=== PATIENT | female | born 1975 | race Caucasian/White ===

== ENCOUNTER 2019-10-09 01:21 | Day surgery (SDC) | payer BC, SELFPAY ==
[2019-09-30 12:49] VITALS: BMI 44.7
--- NOTE | 2019-10-09 09:54 | P.HP_ITS ---
History of Present Illness History of Present Illness Consent: Risks, benefits, and alternatives have been discussed and questions answered. Patient agrees to proceed with procedure. Chief complaint: Menorrhagia Narrative: Monica Starkey is a 44 year old female presents for mj ablation. s/p hysteroscopy [facility] Past Medical History Medical History (Updated 10/09/19 @ 09:58 by Nawaf Perez MD) Menorrhagia Meds Home Medications and Allergies Home Medications Medication Instructions Recorded Confirmed Type Do Terra Microplex Vmz 2 cap PO BID 09/30/19 History Doterra Alpha Crs + Vitality 2 cap PO BID 09/30/19 History Doterra Exo Benny Complex 2 cap PO BID 09/30/19 History methylphenidate HCl 30 mg PO DAILY 09/30/19 09/30/19 History sertraline 50 mg PO QNOON 09/30/19 09/30/19 History Allergies Allergy/AdvReac Type Severity Reaction Status Date / Time latex Allergy Rash Verified 09/30/19 12:53 Exam Const: General: no acute distress GI: GI Palp: Yes Soft to palpation : External Female Exam: normal external appearance Assessment and Plan Assessment and plan (1) Menorrhagia: Code(s): N92.0 - Excessive and frequent menstruation with regular cycle Status: Acute Assessment and Plan: scheduled for a hysteroscopy dilation and curettage. Risk and benefits reviewed with patient.
[2019-10-09 10:49] VITALS: BP 153/82; PULSE 66; RESP 16; TEMP 36.6; O2SAT 100
[2019-10-09] MEDS: LACTATED RINGERS 1,000 ML 30 ML IV CONT (11:30)
--- NOTE | 2019-10-09 12:24 | WPDANESEPPF ---
Anes - Initial Pre Proc Eval Procedure: Operation Date: 10/09/19 12:45 Proposed Procedures p Hysteroscopy, Endometrial Lida Ablation - Nawaf Perez MD Date/Time: 10/09/19 12:24 Surgeon: Nawaf Perez MD Pre Op Diagnosis: Menorrhagia Patient Data Age: 44 Gender: F Height: 5 ft 9 in Weight: 137.8 kg Allergies Allergy/AdvReac Type Severity Reaction Status Date / Time latex AdvReac SENSITIVE Verified 10/09/19 11:10 TO LATEX,SKIN GETS RED AND RAISED Home Medications Medication Instructions Recorded Confirmed Type Do Terra Microplex Vmz 2 cap PO BID 09/30/19 10/09/19 History Doterra Alpha Crs + Vitality 2 cap PO BID 09/30/19 10/09/19 History Doterra Exo Benny Complex 2 cap PO BID 09/30/19 10/09/19 History methylphenidate HCl 30 mg PO DAILY 09/30/19 10/09/19 History sertraline 50 mg PO QNOON 09/30/19 10/09/19 History lactobacillus combination no.4 3,000 mmu cells PO DAILY 10/09/19 10/09/19 History [Probiotic] Patient hx anesthesia problems: none Family hx anesthesia problems: none PMFSH Past Medical History Medical History (Updated 10/09/19 @ 12:24 by Elbert العلي MD) Menorrhagia Morbid obesity ERIK on CPAP Surgical History Surgical History (Updated 10/09/19 @ 12:24 by Elbert العلي MD) History of section Hx of tonsillectomy Anes - Eval Final PreProcedure Day of Procedure 10/09/19 12:24 Patient weight: morbidly obese Heart: regular rate and rhythm Lungs: clear to auscultation Airway: Mallampati scale class II Neurological: alert and oriented Last oral intake: >/= 8 hours ASA classification: III Emergent: no Anesthetic plan: proceed Anesthesia type and monitoring: general GIVS and standard monitoring Informed Consent: The patient's anesthetic plan and its attendant risks and benefits were discussed with the patient/family/POA. Questions were solicited and answers provided to the satisfaction of the patient/family/POA.
--- NOTE | 2019-10-09 13:10 | SUR.PREOP ---
1100-STATES NO CHANGE SINCE INTERVIEW. INFORMED SURGERY/ANESTHESIA DELAY SURGEON ~30 MINUTES.
[2019-10-09] MEDS: KETOROLAC 30 MG/ML VIAL (*BKC) IV PUSH (14:12)
[2019-10-09 14:16] VITALS: BP 152/79; PULSE 76; RESP 18; O2SAT 97
[2019-10-09 14:45] VITALS: BP 131/63; PULSE 70; RESP 18; O2SAT 97
[2019-10-09 15:15] VITALS: BP 157/73; PULSE 62; RESP 18
--- NOTE | 2019-10-10 18:07 | OP_ITS ---
DATE OF PROCEDURE: 10/09/2019 PREOPERATIVE DIAGNOSIS: Abnormal uterine bleeding. POSTOPERATIVE DIAGNOSIS: Abnormal uterine bleeding. PROCEDURE PERFORMED: Hysteroscopy with Lida ablation. ANESTHESIA: MAC with a paracervical block. COMPLICATIONS: None. ESTIMATED BLOOD LOSS: 50 cc. PROCEDURE IN DETAIL: The patient was taken to the operating room with IV running, prepared and draped in a normal sterile fashion and placed in the dorsal lithotomy position. Bivalved speculum was placed into the vagina. Anterior lip of the cervix was grasped with a single-tooth tenaculum. The cervix was then serially dilated with Hegar dilators and hysteroscope was introduced into uterine cavity. The hysteroscope was removed. The Lida device was then introduced into the cavity, passed. uterine length of 6 cm. Lida device was activated and ablated for 2 minutes. With Lida device removed, hysteroscope showed good ablation. Prior to ablating the uterus, sharp curettage was performed in all 4 quadrants to a gritty texture. Specimen was sent to pathology. Sponge, needle counts were correct x2. Hemostasis was assured at the tenaculum site. Angela I MT: Diane DAVIES
== END 2019-10-09 15:32 | disposition home or self-care (01) ==
PROVIDERS: PCP Family Medicine; Visit Provider Obstetrics & Gynecology
PROC: 0U5B8ZZ Destruction of Endometrium, Via Natural or Artificial Opening Endoscopic (ICD-10-PCS; CPT 58563; principal; 2019-10-09 12:45)
DX: N92.0 Excessive and frequent menstruation with regular cycle (principal); G47.33 Obstructive sleep apnea (adult) (pediatric); Z99.89 Dependence on other enabling machines and devices; E66.01 Morbid (severe) obesity due to excess calories; Z68.41 Body mass index [BMI] 40.0-44.9, adult
CPT/HCPCS: 58563; 88305; A9270; J1885; J2250; J2704; J3010; J7030; J7120

== ENCOUNTER 2022-02-12 00:14 | Day surgery (SDC) | payer BC, SELFPAY ==
[2022-02-05 12:46] VITALS: BMI 45.8
--- NOTE | 2022-02-05 12:56 | PC.NURSE ---
Report to the Outpatient Waiting Room, entrance under the green pavilion located off [facility], at time 0915 on date 02/12/22. OR Time: 1115. - You and your visitor will be asked a series of questions to screen for COVID 19 for your protection. - Only one visitor is allowed at this time. - The patient visitor is requested to leave or wait in car when not with patient. - A mask is required within the hospital. Patients may have clear liquids (water, carbonated beverages, clear teas, apple juice) until 3 hours prior to surgery with a maximum of 20 ounces. - No food from midnight until time of surgery Take the following medications with a SIP of water the morning of surgery: NONE (TAKES SERTRALINE AT NOON USUALLY) Medications to discontinue per physician: VITAMINS/SUPPLEMENTS Date to take last dose: 02/08/22 Please no make-up, nail cypriot, hairspray, perfume, deodorant, or body powder the day of surgery. No jewelry (including any body piercings) or valuables the day of surgery, leave them at home. Please take a shower or bath the night before, or the morning of, surgery with an antibacterial soap. Wear comfortable, loose fitting clothing. - Jewelry must be removed prior to entering the operating room. Rings and piercings that are not removed may be cut off. - The hospital will not accept responsibility for valuables. - Please leave all valuables, including medications, at home the day of surgery. If you are going home after surgery, a licensed patrol driver must drive you home. - NO public transportation without another adult. - We recommend that an adult stay with you for 24 hours following discharge. - We also recommend that you do not drive, make important decision, drink alcoholic beverages, or take any drugs that were not prescribed by your health care provider for at least 24 hours after your discharge time. Follow any additional instructions given to you from your surgeon. If you or anyone in your household have experienced Covid symptoms in the past week, please notify your surgeon or the nurse liaison at the phone number below for possible testing. Telephone instructions given to PT - SEBASTIEN REYES and asked if any additional questions and then verbalized understanding. Patient advised to call surgeon office or pre surgery nurse liaison [phone] if any additional questions.
--- NOTE | 2022-02-12 06:52 | WPDHPUPDATE1 ---
History and Physical Update Update Date/Time: 02/12/22 06:52 History and Physical has been reviewed, including an updated exam of the patient. There are NO changes in the patient's condition. Risks, benefits, and alternatives have been discussed and questions answered. Patient agrees to proceed with procedure.
--- NOTE | 2022-02-12 06:52 | PM.HPGS ---
History of Present Illness History of Present Illness Consent: Risks, benefits, and alternatives have been discussed and questions answered. Patient agrees to proceed with procedure. Chief complaint: menorrhagia Narrative: Monica Starkey is a 47 year old female with menorrhagia. Patient has 6 months of increasing cycles now lasting 6-8 days passing clots with heavy flow. Patient is status post endometrial ablation in 2019. It was recommended to proceed with hysteroscopy D&C to further evaluate. Patient was given Cytotec for the week prior to procedure to help with entering the cavity. Risks of infection, bleeding, perforation, and inability to enter the cavity were reviewed. Possible pathology was also discussed. Patient voices understanding and agrees to proceed. Review of Systems Review of Systems: not repeated day of surgery; patient states no changes in status PMFSH Past Medical History Medical History (Updated 02/12/22 @ 06:55 by Leslie Rojas MD) ADHD (attention deficit hyperactivity disorder) Anxiety HTN (hypertension) Menorrhagia Morbid obesity ERIK on CPAP Status post hysteroscopy Surgical History Surgical History (Updated 02/12/22 @ 06:55 by Leslie Rojas MD) History of section X2 Hx of tonsillectomy Status post hysteroscopic ablation of endometrium Status post tubal ligation Social History Social History Smoking status: Never smoker Alcohol intake: never Substance use: never Substance use type: does not use Living arrangements: with family Spiritual care concerns: No Meds Home Medications and Allergies Home Medications Medication Instructions Recorded Confirmed Type Do Terra Microplex Vmz 2 cap PO BID 09/30/19 02/05/22 History Doterra Alpha Crs + Vitality 2 cap PO BID 09/30/19 02/05/22 History Doterra Exo Benny Complex 2 cap PO BID 09/30/19 02/05/22 History methylphenidate HCl 30 mg biphasic 30 mg PO DAILY ADHD 09/30/19 02/05/22 History 30-70 capsule,extended release sertraline 50 mg tablet 50 mg PO QNOON 09/30/19 02/05/22 History lactobacillus combination no.4 3 3,000 mmu cells PO DAILY 10/09/19 02/05/22 History billion cell capsule (Probiotic) cetirizine 10 mg tablet 10 mg PO DAILY 02/05/22 02/05/22 History losartan 100 mg tablet 1 tablet PO DAILY 02/05/22 02/05/22 History misoprostol 200 mcg tablet 200 tablet PO HS 02/05/22 02/05/22 History Allergies Allergy/AdvReac Type Severity Reaction Status Date / Time latex AdvReac SENSITIVE Verified 02/05/22 12:44 TO LATEX,SKIN GETS RED AND RAISED Exam Const: General: healthy appearing and alert Orientation/consciousness: patient oriented x3 GI: GI Palp: Yes Soft to palpation, No Tenderness to palpation present (GI) and No Palpable mass present : External Female Exam: normal external appearance Speculum Exam - Vagina: normal appearance of the vagina and normal vaginal discharge Speculum Exam - Cervix: normal appearance of the cervix Bimanual exam- vagina & uterus: uterine size normal and consistency normal Bimanual Exam- Adnexa, other: normal adnexae and No adnexal tenderness Neuro: General: patient oriented x3 Assessment and Plan Assessment and plan (1) Menorrhagia: Code(s): N92.0 - Excessive and frequent menstruation with regular cycle Status: Acute Assessment and Plan: Plan to proceed with D&C hysteroscopy
[2022-02-12] MEDS: ACETAMINOPHEN 500 MG TABLET 1000 MG PO (09:21)
[2022-02-12 09:30] VITALS: BP 151/89; PULSE 61; RESP 16; TEMP 36.4; O2SAT 99
--- NOTE | 2022-02-12 09:42 | WPDANESEPPF ---
Anes - Initial Pre Proc Eval Procedure: Operation Date: 02/12/22 11:15 Proposed Procedures p Hysteroscopy Dilation and Curettage - Leslie Rojas MD Date/Time: 02/12/22 09:42 Surgeon: Leslie Rojas MD Pre Op Diagnosis: menorrhagia Patient Data Age: 47 Gender: F Height: 1.75 m Weight: 137 kg Last Vital Signs Temp 36.4 C 02/12/22 09:30 Pulse 61 02/12/22 09:30 Resp 16 02/12/22 09:30 BP 151/89 H 02/12/22 09:30 Pulse Ox 99 02/12/22 09:30 O2 Del Method Room Air 02/12/22 09:30 Allergies Allergy/AdvReac Type Severity Reaction Status Date / Time latex AdvReac Intermediate SENSITIVE Verified 02/12/22 09:20 TO LATEX,SKIN GETS RED AND RAISED Home Medications Medication Instructions Recorded Confirmed Type Do Terra Microplex Vmz 2 cap PO BID 09/30/19 02/05/22 History Doterra Alpha Crs + Vitality 2 cap PO BID 09/30/19 02/05/22 History Doterra Exo Benny Complex 2 cap PO BID 09/30/19 02/05/22 History methylphenidate HCl 30 mg biphasic 30 mg PO DAILY ADHD 09/30/19 02/05/22 History 30-70 capsule,extended release sertraline 50 mg tablet 50 mg PO QNOON 09/30/19 02/05/22 History lactobacillus combination no.4 3 3,000 mmu cells PO DAILY 10/09/19 02/05/22 History billion cell capsule (Probiotic) cetirizine 10 mg tablet 10 mg PO DAILY 02/05/22 02/05/22 History losartan 100 mg tablet 1 tablet PO DAILY 02/05/22 02/05/22 History misoprostol 200 mcg tablet 200 tablet PO HS 02/05/22 02/05/22 History Patient hx anesthesia problems: none Family hx anesthesia problems: none Results Review: All pre-operative results and documents have been reviewed as part of the pre-operative evaluation. [facility] Past Medical History Medical History (Updated 02/12/22 @ 06:55 by Leslie Rojas MD) ADHD (attention deficit hyperactivity disorder) Anxiety HTN (hypertension) Menorrhagia Morbid obesity ERIK on CPAP Status post hysteroscopy Surgical History Surgical History (Updated 02/12/22 @ 06:55 by Leslie Rojas MD) History of section X2 Hx of tonsillectomy Status post hysteroscopic ablation of endometrium Status post tubal ligation Social History Social History Smoking status: Never smoker Alcohol intake: never Substance use: never Substance use type: does not use Living arrangements: with family Spiritual care concerns: No Anes - Eval Final PreProcedure Day of Procedure 02/12/22 09:42 Patient weight: morbidly obese Heart: regular rate and rhythm Lungs: clear to auscultation Airway: Mallampati scale class II Neurological: alert and oriented Last oral intake: >/= 8 hours ASA classification: III Emergent: no Anesthetic plan: proceed Anesthesia type and monitoring: general GIVS and LMA and standard monitoring Results Review: All pre-operative results and documents have been reviewed as part of the pre-operative evaluation. Informed Consent: The patient's anesthetic plan and its attendant risks and benefits were discussed with the patient/family/POA. Questions were solicited and answers provided to the satisfaction of the patient/family/POA.
[2022-02-12] MEDS: LACTATED RINGERS 1,000 ML 30 ML IV CONT (09:48)
--- NOTE | 2022-02-12 10:34 | SUR.OPER ---
250ml ns in, 250ml ns out. md ingram
--- NOTE | 2022-02-12 10:42 | W.PM.PROC2 ---
Procedure Note - Detailed Date of Procedure 02/12/22 Pre-op Diagnosis menorrhagia Post-op Diagnosis Same Procedure Performed D&C hysteroscopy Surgeon Leslie Rojas MD Anesthesia MAC and Local Findings Cervix is very stenotic. Endometrium appears grossly consistent with previous endometrial ablation. No obvious lesions. Description of Procedure The patient was taken to the operating room and placed under anesthesia in the dorsal lithotomy position. She was prepped and draped in usual sterile fashion. [place] speculum was placed in the vagina and the cervix was grasped on the anterior lip with a tenaculum. The cervix is injected in each quadrant with 1% lidocaine. The sound is placed and stenotic cervix at the internal os is noted. Os Finders were used and seeing finding is noted. Small dilators are used and upon placing the 5 Hegar the internal os was able to be breached. Copious amounts of old blood were released. The cervix is then dilated to an 8 Hegar. The uterus is sounded to 8 cm. The diagnostic hysteroscope is placed with the above-stated findings. The hysteroscope was removed and the medium sharp curette used to curette the endometrium until a good uterine cry was noted in all areas. Minimal material was obtained consistent with the appearance. All instruments are removed and the patient awakened from anesthesia. Sponge, needle, and instrument counts are correct per the OR staff. Estimated Blood Loss 5 Drains No Packing No Pathology Yes (Endometrial curettings) Complications No immediate complications Condition Stable Disposition PACU
[2022-02-12 10:45] VITALS: BP 167/97; PULSE 60; RESP 12; O2SAT 95
[2022-02-12 11:15] VITALS: BP 179/88; PULSE 53; RESP 16
[2022-02-12] MEDS: oxyCODONE HCL (*CRX) 5 MG TAB IR PO (11:20)
== END 2022-02-12 11:30 | disposition home or self-care (01) ==
PROVIDERS: PCP Family Medicine; Visit Provider Obstetrics & Gynecology Gynecology
PROC: 0U5B8ZZ Destruction of Endometrium, Via Natural or Artificial Opening Endoscopic (ICD-10-PCS; CPT 58563; principal; 2022-02-12 11:15)
DX: N92.0 Excessive and frequent menstruation with regular cycle (principal); F90.9 Attention-deficit hyperactivity disorder, unspecified type; F41.9 Anxiety disorder, unspecified; G47.33 Obstructive sleep apnea (adult) (pediatric); E66.01 Morbid (severe) obesity due to excess calories; Z68.41 Body mass index [BMI] 40.0-44.9, adult
CPT/HCPCS: 58558; 88305; A9270; J1100; J2250; J2405; J2704; J3010; J7120

== ENCOUNTER 2022-02-23 07:55 | Outpatient (CLI) | payer BC, SELFPAY ==
--- NOTE | 2022-02-23 08:05 | ECG_ITS ---
Measurements Intervals [place] Rate: 73 P: 30 CT: 131 QRS: 23 QRSD: 102 T: 36 QT: 395 QTc: 435 Interpretive Statements SINUS RHYTHM NORMAL ECG NO PREVIOUS ECG AVAILABLE FOR COMPARISON Electronically Signed On 02-23-2022 16:45:41 CDT by Shamir Dela Cruz M.D.
[2022-02-23 08:30] LABS: Hematocrit 39.4 % (37.0-47.0); Hemoglobin 13.4 g/dL (12.0-15.0)
== END 2022-02-23 07:56 | disposition home or self-care (01) ==
LOC: ANHSURGERY 07:58
PROVIDERS: PCP Family Medicine; Visit Provider Obstetrics & Gynecology Gynecology
DX: Z01.818 Encounter for other preprocedural examination (principal); N92.0 Excessive and frequent menstruation with regular cycle; I10 Essential (primary) hypertension
CPT/HCPCS: 36415; 85014; 85018; 86850; 86900; 86901; 93005

== ENCOUNTER 2022-02-26 11:36 | Inpatient (IN) | payer BC, SELFPAY ==
[2022-02-21 08:27] VITALS: BMI 45.8
--- NOTE | 2022-02-21 08:32 | PC.NURSE ---
Report to the Outpatient Waiting Room, entrance under the green pavilion located off [facility], at time _0600_ on date _[id number]_. OR Time: _0730_. - You and your visitor will be asked a series of questions to screen for COVID 19 for your protection. - Only one visitor is allowed at this time. - The patient visitor is requested to leave or wait in car when not with patient. - A mask is required within the hospital. Patients may have clear liquids (water, carbonated beverages, clear teas, apple juice) until 3 hours prior to surgery with a maximum of 20 ounces. - No food from midnight until time of surgery Take the following medications with a SIP of water the morning of surgery: ___None Medications to discontinue per physician ____All vitamins and supplements Date to take last opei___[id number] Please no make-up, nail hungarian, hairspray, perfume, deodorant, or body powder the day of surgery. No jewelry (including any body piercings) or valuables the day of surgery, leave them at home. Please take a shower or bath the night before, or the morning of, surgery with an antibacterial soap. Wear comfortable, loose fitting clothing. - Jewelry must be removed prior to entering the operating room. Rings and piercings that are not removed may be cut off. - The hospital will not accept responsibility for valuables. - Please leave all valuables, including medications, at home the day of surgery. If you are going home after surgery, a licensed locomotive driver must drive you home. - NO public transportation without another adult. - We recommend that an adult stay with you for 24 hours following discharge. - We also recommend that you do not drive, make important decision, drink alcoholic beverages, or take any drugs that were not prescribed by your health care provider for at least 24 hours after your discharge time. Follow any additional instructions given to you from your surgeon. If you or anyone in your household have experienced Covid symptoms in the past week, please notify your surgeon or the nurse liaison at the phone number below for possible testing. Telephone instructions given to ____Patient and asked if any additional questions and then verbalized understanding. Patient advised to call surgeon office or pre surgery nurse liaison [phone] if any additional questions.
[2022-02-26] VITALS (11 sets, daily range): BP systolic 114–171; BP diastolic 64–93; PULSE 61–77; RESP 15–20; TEMP 36.4–38.1; O2SAT 95–100; BMI 44.4
--- NOTE | 2022-02-26 06:47 | WPDANESEPPF ---
Anes - Initial Pre Proc Eval Procedure: Operation Date: 02/26/22 07:30 Proposed Procedures p Total Abdominal Hysterectomy, Bilateral Salpingectomy - Leslie Rojas MD Date/Time: 02/26/22 06:47 Surgeon: Leslie Rojas MD Pre Op Diagnosis: menorrhagia,dysmenorrhea Patient Data Age: 47 Gender: F Height: 1.75 m Weight: 136.4 kg Last Vital Signs Temp 36.5 C 02/26/22 06:21 Pulse 66 02/26/22 06:21 Resp 20 02/26/22 06:21 BP 171/83 H 02/26/22 06:21 Pulse Ox 100 02/26/22 06:21 O2 Del Method Room Air 02/26/22 06:21 Allergies Allergy/AdvReac Type Severity Reaction Status Date / Time latex AdvReac Intermediate SENSITIVE Verified 02/26/22 06:23 TO LATEX,SKIN GETS RED AND RAISED Home Medications Medication Instructions Recorded Confirmed Type Do Terra Microplex Vmz 2 cap PO BID 09/30/19 02/26/22 History Doterra Alpha Crs + Vitality 2 cap PO BID 09/30/19 02/26/22 History Doterra Exo Benny Complex 2 cap PO BID 09/30/19 02/26/22 History sertraline 50 mg tablet 50 mg PO QNOON 09/30/19 02/26/22 History lactobacillus combination no.4 3 3,000 mmu cells PO DAILY 10/09/19 02/26/22 History billion cell capsule (Probiotic) cetirizine 10 mg tablet 10 mg PO DAILY 02/05/22 02/26/22 History losartan 100 mg tablet 1 tablet PO DAILY 02/05/22 02/26/22 History Patient hx anesthesia problems: none Family hx anesthesia problems: none Results Review: All pre-operative results and documents have been reviewed as part of the pre-operative evaluation. [facility] Past Medical History Medical History ADHD (attention deficit hyperactivity disorder) Anxiety HTN (hypertension) Menorrhagia Morbid obesity ERIK on CPAP Status post hysteroscopy Surgical History Surgical History History of section X2 Hx of tonsillectomy Status post hysteroscopic ablation of endometrium Status post tubal ligation Social History Social History Smoking status: Never smoker Alcohol intake: never Substance use: never Substance use type: does not use Living arrangements: with family Spiritual care concerns: No Anes - Eval Final PreProcedure Day of Procedure 02/26/22 06:47 Patient weight: morbidly obese Heart: regular rate and rhythm Lungs: clear to auscultation Airway: Mallampati scale class II Neurological: alert and oriented Last oral intake: >/= 8 hours ASA classification: III Emergent: no Anesthetic plan: proceed Anesthesia type and monitoring: general ETT and standard monitoring Results Review: All pre-operative results and documents have been reviewed as part of the pre-operative evaluation. Informed Consent: The patient's anesthetic plan and its attendant risks and benefits were discussed with the patient/family/POA. Questions were solicited and answers provided to the satisfaction of the patient/family/POA.
[2022-02-26] MEDS: LACTATED RINGERS 1,000 ML 30 ML IV CONT ×2 (06:54→10:28)
[2022-02-26] MEDS: KETOROLAC 15 MG/ML VIAL (*BKC) IV PUSH (06:54)
[2022-02-26] MEDS: ACETAMINOPHEN 500 MG TABLET 1000 MG PO (06:54)
[2022-02-26] MEDS: SCOPOLAMINE 1.5 MG PATCH TRANSDERM (06:57)
--- NOTE | 2022-02-26 07:14 | WPDHPUPDATE1 ---
History and Physical Update Update Date/Time: 02/26/22 07:14 History and Physical has been reviewed, including an updated exam of the patient. There are changes in the patient's condition. Update: Hysteroscopy D&C was normal. Patient with significant dysmenorrhea and menorrhagia after conservative measures. A/P: dysmenorrhea and menorrhagia: Plan to proceed with total abdominal hysterectomy with bilateral salpingectomy. Risks of infection, bleeding, injury to internal organs (socrates. bowel, bladder, ureters, ovaries), DVT, and general anesthesia were reviewed. Patient questions answered and she agree to plan. Risks, benefits, and alternatives have been discussed and questions answered. Patient agrees to proceed with procedure.
[2022-02-26] MEDS: ceFAZolin 3 GM/D5W 100 ML 100 ML IVPB (07:28)
--- NOTE | 2022-02-26 10:26 | W.PM.PROC2 ---
Procedure Note - Detailed Date of Procedure 02/26/22 Pre-op Diagnosis menorrhagia,dysmenorrhea Post-op Diagnosis Same Procedure Performed Total abdominal hysterectomy bilateral salpingectomy Surgeon Leslie Rojas MD Anesthesia General Findings enlarged fibroid uterus, densely adherent bladder, normal-appearing tubes and ovaries Description of Procedure the patient was taken to the operating room and placed under anesthesia in the dorsal supine position. Once anesthesia was deemed adequate she was prepped and draped in the usual sterile fashion. Traxi self-retaining retractor was placed to elevate the pannus Pfannenstiel skin incision was made with a scalpel and carried down to the underlying layer of fascia which was nicked in the midline. the incision was extended laterally using Vazquez scissors. Ochsner was used to tent the fascia which was then dissected off using sharp dissection due to adhesions. The rectus muscles were densely adherent in the midline. the midline is incised with a scalpel and the peritoneum tented and entered with Metzenbaum scissors. The incision is extended with blunt traction minimally. Metzenbaum were used to extend the peritoneal scar tissue. the boulfor is placed and the bowel packed away using moist laparotomy sponges. The Sinai was used to retract the bladder. The cornu were grasped with large peon bilaterally. the round ligaments were doubly ligated with 0 Vicryl. The Metzenbaum were used to incise the round ligaments and the anterior leaf of the broad ligament. The bladder was very densely adherent to the lower uterine segment. This was dissected off using sharp and blunt dissection with difficulty. The window was created in the posterior leaf of the broad ligament and the pedicle doubly clamped and cut. Each pedicle was tied off using 0 Vicryl in a Maura stitch. The uterine vessels are clamped, transected, and suture ligated with 0 Vicryl. The cardinal and uterosacral ligaments are serially clamped, transected, and suture ligated with 0 Vicryl. The uterosacral ligaments were tagged for future use. The scalpel used into the vaginal cuff anteriorly. Jose scissors were used to amputate the specimen. the cervix is noted to still be mostly left and. This is grasped with Allis clamps and amputated in pieces. The vaginal cuff was then grasped anteriorly and posteriorly with Allis clamps. The vaginal cuff was closed using 0 Vicryl in a running locked fashion. Each angle was tied to the ipsilateral uterosacral ligaments. One additional [id number] suture was required posteriorly for hemostasis. The left tube was grasped Mcdonald,crossclamped with a minimally curved Z clamp, and excised. The left ovary is noted to have bleeding below the tube which was tied off using a running stitch of Vicryl. Good hemostasis was then noted. The right tube was grasped with a Linda, crossclamped with a Z clamp, and excised. 0 Vicryl was used to tie off the pedicle. One additional stitch is required on the surface of the ovary for hemostasis. pelvis was then irrigated and noted to be hemostatic all pedicles and the vaginal cuff are visualized. the instruments and sponges were then removed. The fascia was closed using 0 Vicryl in a running stitch. Subcutaneous tissues were irrigated and made hemostatic using Bovie cautery. Skin is closed using 4 0 Vicryl in a subcuticular fashion. Dermaflex was placed over the incision. Sponge, needle, and instrument counts are correct per the OR staff. Patient was given Ancef prior to incision. Patient is awakened from anesthesia and taken to recovery in stable condition. Estimated Blood Loss 400 Drains Yes ( Guevara catheter) Packing No Pathology Yes ( uterus, cervix, tubes) Complications No immediate complications Condition Stable Disposition PACU
--- NOTE | 2022-02-26 10:36 | PM.DS ---
DS: Admitting Diagnosis Discharge Date 02/28/22 Admitting Diagnosis dysmenorrhea, menorrhagia DS: Discharge Diagnosis Discharge Diagnosis (1) Menorrhagia: Code(s): N92.0 - Excessive and frequent menstruation with regular cycle Status: Acute (2) Dysmenorrhea: Code(s): N94.6 - Dysmenorrhea, unspecified Status: Acute (3) Status post complete hysterectomy: Code(s): Z90.710 - Acquired absence of both cervix and uterus Status: Acute DS: Summary Hospital Course Hospital Course: Prior to discharge the patient is tolerating regular diet, voiding, and ambulating. Status at Discharge Functional status at discharge: independent ambulation Overall status at discharge: patient is progressing back to baseline Time Spent with Patient Time attestation: Total time spent providing and/or coordinating discharge services: DS: Data Data Completed and Pending Pending studies at discharge: Pending at discharge 02/26/22 09:26 Surgical [PTH] Routine Discharge Plan Discharge Attending physician on discharge: Leslie Rojas Discharging Clinician: Leslie Rojas Anticipated Discharge Date/Time: 02/28/22 20:05 Patient Disposition: Home, Self-Care Activity: may shower, may drive after 2 weeks and pelvic rest Diet: regular Wound Care Instructions: incision open to air Patient Instructions: Hysterectomy (DC) Stand Alone Forms: General Discharge Instructions Follow-up/Referrals: Leslie Rojas MD [Physician] - 1 Week (and 6 weeks) Discharge Medications: New ibuprofen 600 mg Tablet 600 mg PO Q6H PRN (Reason: Cramping) 14 Days Qty: 45 0RF Continued sertraline 50 mg tablet 50 mg PO QNOON Do Terra Microplex Vmz 2 cap PO BID Doterra Alpha Crs + Vitality 2 cap PO BID Doterra Exo Benny Complex 2 cap PO BID Probiotic 3 billion cell Capsule 3,000 mmu cells PO DAILY cetirizine 10 mg Tablet 10 mg PO DAILY losartan 100 mg tablet 1 tablet PO DAILY Date of admission: 02/26/22 11:36 Primary Care Provider: RonnellDarwin Admitting Provider: Leslie Rojas Attending physician on admission: Leslie Rojas Condition: Stable
[2022-02-26] MEDS: fentaNYL CITRATE INJ (*CRX) 100 MCG/2 ML VIAL 25 MCG IV PUSH ×5 (10:48→11:23)
[2022-02-26] MEDS: DEXTROSE 5%/LACTATED RINGERS 1,000 ML 125 ML IV CONT ×2 (12:06→19:51)
[2022-02-26] MEDS: KETOROLAC 30 MG/ML VIAL (*BKC) IV PUSH ×2 (12:18→19:52)
[2022-02-26] MEDS: SIMETHICONE 80 MG TAB.CHEW PO ×3 (12:21→23:16)
[2022-02-26] MEDS: HYDROcodone/acetaminophen (*CRX) 10-325 MG TABLET 1 TAB PO ×2 (14:01→16:45)
[2022-02-26] MEDS: ONDANSETRON INJ 4 MG/2 ML VIAL IV PUSH (14:01)
[2022-02-26] MEDS: HYDROcodone/acetaminophen (*CRX) 5-325 MG TABLET 1 TAB PO (23:16)
[2022-02-27] MEDS: KETOROLAC 30 MG/ML VIAL (*BKC) IV PUSH (01:59)
[2022-02-27 04:40] VITALS: BP 146/68; PULSE 74; RESP 16; TEMP 36.4; O2SAT 99
[2022-02-27 05:35] LABS: Basophils Percent Auto 0.1 % (0.2-1.2); Eosinophils Percent Auto 0.1 % (0-4.4); Hematocrit 33.4 % (37.0-47.0); Hemoglobin 11.2 g/dL (12.0-15.0); Immature Granulocyte Absolute 0.06 K/mm3 (0.00-0.031); Immature Granulocyte Percent A 0.4 % (0-0.5); Lymphocytes Absolute Auto 1.79 K/mm3 (0.9-3.2); Lymphocytes Percent Auto 11.8 % (18.3-44.2); Mean Corpuscular HGB Conc 33.5 g/dl (32-36); Mean Corpuscular Hemoglobin 29.2 pg (26-34); Mean Corpuscular Volume 87.2 fl (80-100); Mean Platelet Volume 9.8 fl (7.4-10.4); Monocytes Absolute Auto 1.4 K/mm3 (0.1-0.6); Neutrophils Percent Auto 78.6 % (45.5-73.1); Platelet Count Result 278 k/mm3 (150-375); Red Blood Count 3.83 M/mm3 (4.2-5.4); Red Cell Distribution Width 13.5 % (11.5-14.5); White Blood Count 15.2 K/mm3 (4.5-10.0)
[2022-02-27] MEDS: HYDROcodone/acetaminophen (*CRX) 5-325 MG TABLET 1 TAB PO (05:39)
[2022-02-27] MEDS: SIMETHICONE 80 MG TAB.CHEW PO ×3 (05:40→19:46)
--- NOTE | 2022-02-27 07:44 | PM.GYNPNOP ---
[employer] - A/P Postoperative Procedures: Procedures Operation Date: 02/26/22 07:30 Actual Procedure Side Surgeon p Total Abdominal Hysterectomy, Bilateral Salpingectomy Bilateral Leslie Rojas MD Postoperative day: 1 Postoperative status: doing well Postoperative plan: routine post-op care Time Spent With Patient Time: Total time spent is greater than 50% in coordination of care (as documented) at patient's floor/unit and/or counseling patient: Time with patient: less than 15 minutes [employer]- PN:Subj Post-Op Subjective Date/time seen: 02/27/22 07:44 Subjective: patient reports feeling better (since catheter is out), patient has no complaints and pain is well controlled Exam Narrative: Inc c/d/i abdomen soft, nt [employer] - PN: Obj Data Vital Signs Vital Signs: Vital Signs - 24 hr 02/26/22 10:28 02/26/22 10:30 02/26/22 10:45 Temperature 98.6 F Pulse Rate 64 65 61 Respiratory Rate 15 15 17 Blood Pressure 114/64 114/93 H 129/79 Pulse Oximetry 97 100 100 Oxygen Delivery Simple Face Mask Simple Face Mask Simple Face Mask Oxygen Flow Rate 10 10 10 02/26/22 11:00 02/26/22 11:15 02/26/22 11:30 Temperature Pulse Rate 65 66 69 Respiratory Rate 18 18 18 Blood Pressure 138/78 151/83 H 150/79 H Pulse Oximetry 95 95 95 Oxygen Delivery Room Air Room Air Room Air Oxygen Flow Rate 02/26/22 12:00 02/26/22 16:45 02/26/22 19:37 Temperature 97.7 F 97.6 F 100.6 F H Pulse Rate 68 74 77 Respiratory Rate 18 18 18 Blood Pressure 151/70 H 152/80 H 143/77 H Pulse Oximetry 96 98 97 Oxygen Delivery Oxygen Flow Rate 02/26/22 23:20 02/27/22 04:40 Temperature 99.0 F 97.5 F L Pulse Rate 64 74 Respiratory Rate 18 16 Blood Pressure 156/79 H 146/68 H Pulse Oximetry 99 99 Oxygen Delivery Oxygen Flow Rate Intake/Output Intake/Output: Intake & Output 02/24/22 02/25/22 02/26/22 02/27/22 23:59 23:59 23:59 23:59 Intake Total 3180 1200 Output Total 1805 1750 Balance 1375 -550 Meds/Results Medications: Active Medications Generic Name Dose Route Start Last Admin Trade Name Freq PRN Reason Stop Dose Admin Hydrocodone Bitart/Acetaminophen 1 tab 02/26/22 11:36 02/26/22 16:45 Hydrocodone/Acetaminophen (*Crx) 10-325 Mg Tablet PO 1 tab Q3H PRN Administration Pain Rated 6 or Greater Hydrocodone Bitart/Acetaminophen 1 tab 02/26/22 11:36 02/27/22 05:39 Hydrocodone/Acetaminophen (*Crx) 5-325 Mg Tablet PO 1 tab Q3H PRN Administration Pain Rated 5 or Less Dextrose/Lactated Ringer's 1,000 mls @ 125 mls/hr 02/26/22 11:36 02/27/22 02:10 Dextrose 5%/Lactated Ringers IV CONT Infused .Q8H ELSY Infusion Ketorolac Tromethamine 30 mg 02/26/22 11:36 02/27/22 01:59 Ketorolac 30 Mg/Ml Vial (*Bkc) IV PUSH 03/03/22 11:35 30 mg Q6H PRN Administration Pain Rated 4-6 Loratadine 10 mg 02/27/22 09:00 Loratadine 10 Mg Tablet PO QAM ELSY Losartan Potassium 100 mg 02/27/22 09:00 Losartan Potassium 100 Mg Tablet PO DAILY ELSY Ondansetron HCl 4 mg 02/26/22 12:12 02/26/22 14:01 Ondansetron Inj 4 Mg/2 Ml Vial IV PUSH 4 mg Q6H PRN Administration Nausea And Vomiting Sertraline HCl 50 mg 02/26/22 12:00 02/26/22 16:48 Sertraline Hcl 50 Mg Tablet PO Not Given NOON ELSY Simethicone 80 mg 02/26/22 11:36 02/27/22 05:40 Simethicone 80 Mg Tab.Chew PO 80 mg Q2H PRN Administration Gas Labs CBC & Chem 7: 02/27/22 04:51 Labs: Laboratory Results - last 24 hr 02/27/22 04:51 WBC 15.2 H RBC 3.83 L Hgb 11.2 L Hct 33.4 L MCV 87.2 MCH 29.2 MCHC 33.5 RDW 13.5 Plt Count 278 MPV 9.8 Immature Gran % (Auto) 0.4 Neut % (Auto) 78.6 H Lymph % (Auto) 11.8 L Hand % (Auto) 9.0 H Eos % (Auto) 0.1 Baso % (Auto) 0.1 L Lymph # (Auto) 1.79 Hand # (Auto) 1.4 H Eos # (Auto) 0.0 Baso # (Auto) 0.0 Abs Immat Gran (auto) 0.06 H Absolute Neuts (auto) 12.0 H Absolute N
[2022-02-27 07:55] VITALS: BP 142/69; PULSE 65; RESP 16; TEMP 37.6; O2SAT 98
[2022-02-27] MEDS: ACETAMINOPHEN 500 MG TABLET 1000 MG PO ×3 (08:53→23:15)
--- NOTE | 2022-02-27 11:38 | P.PNAN_ITS ---
Anes - Prog Note Post-Op Date/Time: 02/27/22 11:38 Cardiovascular status: normal Respiratory status: normal Airway patency: baseline Mental status: baseline Post-Op hydration status: normal Vital Signs: Last Vital Signs Temp 37.6 C H 02/27/22 07:55 Pulse 65 02/27/22 07:55 Resp 16 02/27/22 07:55 BP 142/69 H 02/27/22 07:55 Pulse Ox 98 02/27/22 07:55 O2 Del Method Room Air 02/26/22 11:30 O2 Flow Rate 10 02/26/22 10:45 Pain Score (VAS): 10/12 I/O: Intake & Output 02/26/22 02/27/22 02/27/22 23:59 07:59 15:59 Intake Total 2500 2100 400 Output Total 1575 2350 600 Balance 925 -250 -200 Laboratory Tests 02/27/22 04:51 02/27/22 04:51 WBC 15.2 H RBC 3.83 L Hgb 11.2 L Hct 33.4 L MCV 87.2 MCH 29.2 MCHC 33.5 RDW 13.5 Plt Count 278 MPV 9.8 Immature Gran % (Auto) 0.4 Neut % (Auto) 78.6 H Lymph % (Auto) 11.8 L [place] % (Auto) 9.0 H Eos % (Auto) 0.1 Baso % (Auto) 0.1 L Lymph # (Auto) 1.79 [place] # (Auto) 1.4 H Eos # (Auto) 0.0 Baso # (Auto) 0.0 Abs Immat Gran (auto) 0.06 H Absolute Neuts (auto) 12.0 H Absolute Nucleated RBC 0.0 Nucleated RBC % 0.0 Post-procedural complaints: none Patient Feedback: Patient satisfied with anesthetic care.
[2022-02-27] MEDS: IBUPROFEN 600 MG TABLET PO ×2 (12:53→19:46)
[2022-02-27 20:00] VITALS: BP 126/65; PULSE 69; RESP 18; TEMP 36.4; O2SAT 100
[2022-02-28] MEDS: IBUPROFEN 600 MG TABLET PO ×2 (01:51→09:35)
[2022-02-28] MEDS: ACETAMINOPHEN 500 MG TABLET 1000 MG PO ×2 (05:20→12:04)
--- NOTE | 2022-02-28 07:53 | WPDPN ---
Progress Note: A&P Assessment and Plan (1) Status post complete hysterectomy: Code(s): Z90.710 - Acquired absence of both cervix and uterus Status: Acute Plan Discharge home today. Subjective Date/time seen: 02/28/22 07:25 Review of Systems Review of Systems: All systems reviewed & are unremarkable except as noted in HPI and below Constitutional: Constitutional: Reports as per HPI ENT: Reports system reviewed and no additional complaints, except as documented Respiratory: Respiratory: Reports as per HPI Exam Const: General: comfortable Resp: Effort & Inspection: normal respiratory effort Auscultation: clear to auscultation bilaterally Cardio: Rate: regular rate GI: GI Palp: Yes Soft to palpation Auscultation: normal bowel sounds Skin: Other: Incision clean, dry, and intact. Well approximated. Neuro: General: gait normal Speech: normal speech Sensory Exam: normal sensation Extrem: General: normal to inspection Psych: Mental Status: mental status grossly normal Objective Data Vital Signs Vital Signs: Vital Signs - 24 hr 02/27/22 07:55 02/27/22 20:00 02/27/22 20:00 Temperature 99.7 F H 97.6 F Pulse Rate 65 69 69 Respiratory Rate 16 18 18 Blood Pressure 142/69 H 126/65 Pulse Oximetry 98 100 100 Oxygen Delivery Room Air Intake/Output Intake/Output: Intake & Output 02/25/22 02/26/22 02/27/22 02/28/22 23:59 23:59 23:59 23:59 Intake Total 3180 2780 Output Total 1805 2950 Balance 1375 -170 Meds/Results Medications: Active Medications Generic Name Dose Route Start Last Admin Trade Name Freq PRN Reason Stop Dose Admin Acetaminophen 1,000 mg 02/27/22 07:46 02/28/22 05:20 Acetaminophen 500 Mg Tablet PO 1,000 mg Q6H PRN Administration Mild Pain (1-3) or Fever Hydrocodone Bitart/Acetaminophen 1 tab 02/26/22 11:36 02/26/22 16:45 Hydrocodone/Acetaminophen (*Crx) 10-325 Mg Tablet PO 1 tab Q3H PRN Administration Pain Rated 6 or Greater Hydrocodone Bitart/Acetaminophen 1 tab 02/26/22 11:36 02/27/22 05:39 Hydrocodone/Acetaminophen (*Crx) 5-325 Mg Tablet PO 1 tab Q3H PRN Administration Pain Rated 5 or Less Ibuprofen 600 mg 02/27/22 10:52 02/28/22 01:51 Ibuprofen 600 Mg Tablet PO 600 mg Q6H PRN Administration Cramping Loratadine 10 mg 02/27/22 09:00 02/27/22 08:57 Loratadine 10 Mg Tablet PO Not Given QAM ELSY Losartan Potassium 100 mg 02/27/22 09:00 02/27/22 08:58 Losartan Potassium 100 Mg Tablet PO Not Given DAILY ELSY Sertraline HCl 50 mg 02/26/22 12:00 02/27/22 16:26 Sertraline Hcl 50 Mg Tablet PO Not Given NOON ELSY Simethicone 80 mg 02/26/22 11:36 02/27/22 19:46 Simethicone 80 Mg Tab.Chew PO 80 mg Q2H PRN Administration Gas
--- NOTE | 2022-02-28 07:58 | PM.DS ---
DS: Admitting Diagnosis Discharge Date 02/28/2022 Admitting Diagnosis Menorrhagia DS: Discharge Diagnosis Discharge Diagnosis Plan s/p PASCUAL DS: Summary Hospital Course Reason for hospitalization: Menorrhagia. s/p PASCUAL. POD 2 Hospital Course: Uncoplicated Status at Discharge Functional status at discharge: independent ambulation Time Spent with Patient Time attestation: Total time spent providing and/or coordinating discharge services: Exam Const: General: comfortable Resp: Effort & Inspection: normal respiratory effort Auscultation: clear to auscultation bilaterally Cardio: Rate: regular rate GI: GI Palp: Yes Soft to palpation Auscultation: normal bowel sounds Skin: General skin exam: normal color Neuro: General: gait normal Extrem: General: normal to inspection Psych: Mental Status: mental status grossly normal DS: Data Data Completed and Pending Completed studies during hospitalization: Pending at discharge 02/26/22 09:26 Surgical [PTH] Routine Discharge Plan Discharge Attending physician on discharge: Leslie Rojas Discharging Clinician: Leslie Rojas Anticipated Discharge Date/Time: 02/28/22 20:05 Patient Disposition: Home, Self-Care Activity: may shower, may drive after 2 weeks and pelvic rest Diet: regular Wound Care Instructions: incision open to air Patient Instructions: Hysterectomy (DC) Stand Alone Forms: General Discharge Instructions Follow-up/Referrals: Leslie Rojas MD [Physician] - 1 Week (and 6 weeks) Discharge Medications: New ibuprofen 600 mg Tablet 600 mg PO Q6H PRN (Reason: Cramping) 14 Days Qty: 45 0RF Continued sertraline 50 mg tablet 50 mg PO QNOON Do Terra Microplex Vmz 2 cap PO BID Doterra Alpha Crs + Vitality 2 cap PO BID Doterra Exo Benny Complex 2 cap PO BID Probiotic 3 billion cell Capsule 3,000 mmu cells PO DAILY cetirizine 10 mg Tablet 10 mg PO DAILY losartan 100 mg tablet 1 tablet PO DAILY Date of admission: 02/26/22 11:36 Primary Care Provider: Ronnell,Darwin Admitting Provider: Leslie Rojas Attending physician on admission: Tosin Dhillon Condition: Stable
[2022-02-28 09:15] VITALS: BP 144/76; PULSE 81; RESP 16; TEMP 36.6; O2SAT 99
== END 2022-02-28 12:13 | disposition home or self-care (01) | DRG 742 ==
LOC: ANHOB2 20:06
PROVIDERS: Admitting Provider Obstetrics & Gynecology Gynecology; PCP Family Medicine; Visit Provider Advanced Practice Midwife
PROC: 0UT94ZZ Resection of Uterus, Percutaneous Endoscopic Approach (ICD-10-PCS; principal; 2022-02-26 07:30)
DX: N92.0 Excessive and frequent menstruation with regular cycle (principal); Z68.41 Body mass index [BMI] 40.0-44.9, adult; N94.6 Dysmenorrhea, unspecified; I10 Essential (primary) hypertension; E66.01 Morbid (severe) obesity due to excess calories; F41.9 Anxiety disorder, unspecified; G47.33 Obstructive sleep apnea (adult) (pediatric); Z99.89 Dependence on other enabling machines and devices
CPT/HCPCS: 36415; 85025; 88307; A9270; J0330; J0461; J0690; J1100; J1170; J1885; J2250; J2405; J2704; J2710; J3010; J7120; J7121

== ENCOUNTER → 2022-03-23 14:29 | Outpatient (CLI) | payer BC, SELFPAY ==
--- NOTE | ~2022-03-23 | CT_ITS ---
EXAMINATION: CT abdomen pelvis w con DATE: 03/23/2022 15:29 INDICATION: Right lower quadrant abdominal pain. Vaginal discharge after hysterectomy. TECHNIQUE: Computed tomography (CT) of the abdomen and pelvis was performed with 100 mL Omnipaque 350 intravenous contrast. Automated exposure control and iterative reconstruction technique were employe d. The dose-length product was 1097.73 mGy-cm. COMPARISON: None. FINDINGS: The visualized portions of the lung bases demonstrate minimal atelectasis. No pleural effus ion. The heart size is normal. No pericardial effusion. The liver, gallbladder, spleen, pancreas, adr enal glands, and kidneys are normal. There are no dilated loops of bowel. The appendix is normal. The re is a 3.2 cm cyst in left ovary. There are no pathologically enlarged lymph nodes. There is no free intraperitoneal fluid. There is fat stranding in the lower anterior abdominal wall from the recent s urgical incision. There is mild thoracolumbar spondylosis. IMPRESSION: 1. 3.2 cm cyst in left ovary, likely a follicular cyst. Reviewed, dictated and finalized at location A.
[2022-03-23 15:01] LABS: Estimated Glomerular Filt Rate > 60
== END ==
PROVIDERS: PCP Family Medicine; Visit Provider Obstetrics & Gynecology Gynecology
DX: N89.8 Other specified noninflammatory disorders of vagina (principal); N83.202 Unspecified ovarian cyst, left side; M47.815 Spondylosis without myelopathy or radiculopathy, thoracolumbar region
CPT/HCPCS: 74177; Q9967